=== PATIENT | female | born 1940 | race Caucasian/White ===

== ENCOUNTER → 2020-07-06 | Outpatient (CLI) | payer MEDICARE, OTHER ==
[~2020-07-06] MED LIST: IOHEXOL 240 MG/ML 50ML VIAL. PO ONE; IOHEXOL 300 MG/ML 75 ML VIAL. IV ONE
[2020-07-06 16:31] LABS: BASO # 0.1 x10^3/uL (0.0-0.2); BASO % 1 % (0-3); EOS # 0.5 x10^3/uL (0.0-0.7); EOS % 4 % (0-3); HEMATOCRIT 43.9 % (36.0-47.0); HEMOGLOBIN 14.8 g/dL (12.0-15.5); LYMPH # 2.4 x10^3/uL (1.0-4.8); LYMPH % 22 % (24-48); MEAN CORPUSCULAR HEMOGLOBIN 31 pg (25-35); MEAN CORPUSCULAR HGB CONC 34 g/dL (31-37); MEAN CORPUSCULAR VOLUME 91 fL (79-100); MONO # 0.8 x10^3/uL (0.0-1.1); MONO % 7 % (0-9); NEUT # 7.2 x10^3uL (1.8-7.7); NEUT % 65 % (31-73); PLATELET COUNT 279 x10^3/uL (140-400); RED BLOOD COUNT 4.81 x10^6/uL (3.50-5.40); RED CELL DISTRIBUTION WIDTH 13.5 % (11.5-14.5)
[2020-07-06 16:38] LABS: ALBUMIN 4.3 g/dL (3.4-5.0); CREATININE 1.5 mg/dL (0.6-1.0); GFR 33.3; POTASSIUM 3.9 mmol/L (3.5-5.1); TOTAL BILIRUBIN 0.7 mg/dL (0.2-1.0); TOTAL PROTEIN 8.4 g/dL (6.4-8.2)
--- NOTE | 2020-07-06 17:32 | RAD ---
EXAM: CT Abdomen and Pelvis without IV contrast INDICATION: Reason: RLQ PAIN ONSET THURSDAY, CONCERN FOR HERNIA / Spl. Instructions: DRINKING [id number], no iv contrast, gfr 33. okay per Arabella / History: TECHNIQUE: Multi-detector row CT images were acquired from the lung bases through the abdomen and pelvis without the use of IV contrast. Sagittal and coronal images were acquired from the transaxial data. All CT scans performed at this facility utilize dose optimization techniques as appropriate to the exam, including the following: Automated exposure control and adjustment of the mA and/or KV according to patient size (this includes techniques or standardized protocols for targeted exams where dose is indication/reason for exam). ORAL CONTRAST: None COMPARISON: None FINDINGS: The absence of IV contrast limits evaluation of soft tissue pathology. LOWER CHEST: Unremarkable LIVER: Unremarkable BILIARY SYSTEM: Gallbladder is unremarkable. Bile ducts are not dilated. PANCREAS: Unremarkable SPLEEN: Unremarkable ADRENALS: Unremarkable KIDNEYS & URETERS: Unremarkable BLADDER: Unremarkable REPRODUCTIVE ORGANS: Unremarkable GASTROINTESTINAL: Portion of the right colon protrudes into the right lower quadrant ventral abdominal wall hernia and is associated with exuberant pericolonic soft tissue stranding. The neck of the hernia measures 3 cm in diameter. No extravasation of enteric contrast and no findings of bowel obstruction. Scattered colonic diverticuli are also incidentally noted. The appendix is not well seen. There are no findings of acute appendicitis. MESENTERY/PERITONEUM/RETROPERITONEUM: Unremarkable VASCULAR: Infrarenal abdominal aortic ectasia to 2.6 cm LYMPH NODES: No adenopathy OSSEOUS & SOFT TISSUES: Unremarkable IMPRESSION: Bowel containing right lower quadrant ventral abdominal wall hernia with exuberant pericolonic soft tissue stranding in the hernia sac. Cannot exclude an incarcerated hernia. No bowel obstruction or perforation. Electronically signed by: Ozzie Zhao MD (07/06/2020 5:29 PM) [facility] [place]
== END | disposition home or self-care (01) ==
LOC: PMG 15:47
PROVIDERS: ATTEND Physician Assistant Medical
DX: K43.9 Ventral hernia without obstruction or gangrene (principal); R10.31 Right lower quadrant pain
CPT/HCPCS: 36415; 74176; 80053; 85025; Q9966